=== PATIENT | female | born 1970 | race Caucasian/White ===

== ENCOUNTER 2020-09-13 09:17 | Emergency (ER) | payer OTHER ==
[~2020-09-13] VITALS: Ht 152.4 cm; Wt 56.7 kg
[~2020-09-13 09:17] MED LIST: ALLEGRA-D 12 H1 EAC1 PO; FLONASE 0.05%50 MCG NASAL; LISINOPRIL20 MG PO; XANAX 0.25 MG0.25 MG PO
[2020-09-13] MEDS ORDERED: TERBINAFINE HC250 MG PO (09:29)
[2020-09-13] MEDS ORDERED: KEFLEX500 M1 PO (09:56)
[2020-09-13 10:15] VITALS: BP 99/51
== END 2020-09-13 10:15 | disposition home or self-care (01) ==
LOC: M.ERS 09:17
DX: L03.011 Cellulitis of right finger (principal); I10 Essential (primary) hypertension; Z90.710 Acquired absence of both cervix and uterus; Z79.899 Other long term (current) drug therapy